=== PATIENT | female | born 1945 | race Caucasian/White ===

== ENCOUNTER 2018-05-26 18:14 | Emergency (ER) | payer MEDICARE ==
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
[2018-05-26 20:50] VITALS: BP 156/88; PULSE 82; O2SAT 99
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
== END 2018-05-26 20:50 | disposition home or self-care (01) ==
LOC: ED 18:14
DX: M50.320 Other cervical disc degeneration, mid-cervical region, unspecified level (principal); M54.2 Cervicalgia; M25.512 Pain in left shoulder; M25.572 Pain in left ankle and joints of left foot; V89.2XXA Person injured in unspecified motor-vehicle accident, traffic, initial encounter
CPT/HCPCS: 72040; 73030; 73610; 99283

== ENCOUNTER 2023-05-04 07:16 | Emergency (ER) | payer MEDICARE ==
[2023-05-04] MEDS ORDERED: XYLOCAINE 1%/Epi 1:100000 MDV 20 ML IJ ONE (07:33)
[2023-05-04] MEDS ORDERED: Adacel Vial IM ONE ×3 (07:33→08:01)
[2023-05-04] MEDS ORDERED: ROCEPHIN 2 Gm-D5w 50ML BAG** 2 G/50 ML IVPB IV STA (07:35)
[2023-05-04 07:43] VITALS: TEMP 97; O2SAT 98
[2023-05-04] MEDS ORDERED: XYLOCAINE 1% HCL 20 ML MDV ONE (07:46)
[2023-05-04] MEDS ORDERED: ROCEPHIN 2 Gm-D5w 50ML BAG** 2 G/50 ML IVPB IV ONE (07:46)
[2023-05-04 07:59] LABS: Absolute Neutrophil Ct (ANC) 7.42 x10^3/uL (1.4-6.9); BASOPHIL % 0.4 % (0.0-0.4); Basophil (Absolute #) 0.04 x10^3/uL (0-0.4); Eosinophil % 9.5 % (0.00-5.0); Hematocrit 35.8 % (35-47); Hemoglobin 11.7 g/dL (12.0-16.0); IMMATURE GRAN # 0.02 x10^3u/L (0.00-0.03); IMMATURE GRAN % 0.2 % (0.00-0.4); Lymphocyte (Absolute #) 1.49 x10^3/uL (1.0-4.6); Lymphocytes % 14.2 % (24.0-44.0); Mean Cell Volume 92.3 fL (78-100); Mean Corpuscular Hemoglobin 30.2 pg (26-32); Mean Corpuscular Hgb Concent. 32.7 g/dL (32-36); Mean Platelet Volume 9.1 fL (7.5-11.0); Monocyte (Absolute #) 0.51 x10^3/uL (0.0-1.3); Monocytes % 4.9 % (0.0-12.0); Neutrophil % 70.8 % (36.0-66.0); Platelet Count 266 x10^3/uL (150-450); Red Blood Count 3.88 x10^6/uL (4.1-5.4); Red Cell Distribution Width 12.9 % (11.5-14.0); White Blood Count 10.5 x10^3/uL (4.0-10.5)
[2023-05-04] MEDS ORDERED: XYLOCAINE 1%/Epi 1:100000 MDV 20 ML ONE (08:00)
[2023-05-04 08:33] LABS: ALBUMIN 3.6 g/dL (3.5-5.0); ALKALINE PHOSPHATASE 83 U/L (38-126); ANION GAP 14.4 MEQ/L (5-15); BLOOD UREA NITROGEN 9 mg/dL (7-17); CHLORIDE 109 mmol/L (98-107); Calcium 8.4 mg/dL (8.4-10.2); Carbon Dioxide 22 mmol/L (22-30); Creatinine 1 0.76 mg/dL (0.52-1.04); EST GLOMERULAR FILTRATION RATE > 60.0 ML/MIN; Glucose 98 mg/dL (74-106); Potassium 4.3 mmol/L (3.5-5.1); SGOT/AST 21 U/L (14-36); SGPT/ALT 15 U/L (0-35); SODIUM 141 mmol/L (137-145); Total Protein 5.6 g/dL (6.3-8.2)
--- NOTE | 2023-05-04 08:52 | XRAY ---
Indication: Spider bite. Foreign body. Comparison: None 3 view right hand demonstrates osteopenia, mild/moderate degenerative changes all IP/MCP joints, moderate/advanced degenerative changes 1st metacarpal multangular scaphoid articulation, 2nd/3rd DIP fusion with intact hardware, and diffuse soft tissue swelling/edema. No other bony, articular, or soft tissue abnormalities.
--- NOTE | 2023-05-04 09:35 | ERPHSYRPT ---
- History of Present Illness Time Seen by Provider: 05/04/23 07:27 Source: patient Exam Limitations: no limitations Patient Subjective Stated Complaint: pt here for pain to right index finger since tuesday, she believes she was bit by insect, now has drainage and pain Triage Nursing Assessment: pt alert, resp easy, walked in, skin w/d/p. has swell ing,,drainage,redness and tenderness to right index finger, Physician History: Patient has abscess of the right index finger. Has been going on for 3 days. Patient believes that she was bit by something. No falls or trauma. No foreign body sensation. She has not tried anything make it better or worse. It appears to be draining on its own. Some surrounding and inflammation. No history of serious infections. Allergies/Adverse Reactions: lorazepam [From Ativan] Allergy (Verified 05/04/23 07:31) increased pt anxiety level. nervousness, jittery Home Medications: Naproxen 500 mg [Naprosyn 500 MG] 500 mg PO DAILY 05/04/23 [History] Hx Tetanus, Diphtheria Vaccination/Date Given: No Hx Influenza Vaccination/Date Given: Yes Hx Pneumococcal Vaccination/Date Given: Yes Immunizations Up to Date: Yes Travel Risk - International Travel Have you traveled outside of the country in past 3 weeks: No - Coronavirus Screening Are you exhibiting any of the following symptoms?: No Close contact with a COVID-19 positive Pt in past 14-21 Days: No - Vaccine Status Have you recieved a Covid-19 vaccination: No - Review of Systems Constitutional: No Fever, No Chills Eyes: No Symptoms Ears, Nose, & Throat: No Symptoms Respiratory: No Cough, No Dyspnea Cardiac: No Chest Pain, No Edema, No Syncope Abdominal/Gastrointestinal: No Abdominal Pain, No Nausea, No Vomiting, No Diar lovely Genitourinary Symptoms: No Dysuria Musculoskeletal: No Back Pain, No Neck Pain Skin: Other (right index finger infection), No Rash Neurological: No Dizziness, No Focal Weakness, No Sensory Changes Psychological: No Symptoms Endocrine: No Symptoms All Other Systems: Reviewed and Negative - Past Medical History Pertinent Past Medical History: Yes Neurological History: No Pertinent History ENT History: Cataracts Cardiac History: Other Respiratory History: No Pertinent History Endocrine Medical History: Hypothyroidism Musculoskeletal History: Degenerative Disk Disease, Osteoarthritis GI Medical History: No Pertinent History History: No Pertinent History Psycho-Social History: No Pertinent History Female Reproductive Disorders: No Pertinent History Other Medical History: heart murmur - chronic back pain - Past Surgical History Past Surgical History: Yes Neuro Surgical History: No Pertinent History Cardiac: No Pertinent History Respiratory: No Pertinent History Gastrointestinal: Cholecystectomy Genitourinary: No Pertinent History Musculoskeletal: Orthopedic Surgery Female Surgical History: No Pertinent History Other Surgical History: cataract surgery-both eyes, r knee orthoscopic surgery torn ligament. - Social History Smoking Status: Never smoker Exposure to second hand smoke: No Drug Use: none Patient Lives Alone: No - Nursing Vital Signs Nursing Vital Signs: Initial Vital Signs Temperature 97.0 F 05/04/23 07:36 Pulse Rate 79 05/04/23 07:36 Respiratory Rate 20 05/04/23 07:36 Blood Pressure 178/86 05/04/23 07:36 O2 Sat by Pulse Oximetry 98 05/04/23 07:36 Pain Scale Pain Intensity 4 - Physical Exam General Appearance: no apparent distress, alert Eye Exam: PERRL/EOMI, eyes nml inspection Ears, Nose, Throat Exam: normal ENT inspection, TMs normal, pharynx normal, moist mucous membranes Neck Exam: normal inspection, non-tender, supple, full range of motion Respiratory Exam: normal breath sounds, lungs clear, No respiratory distress Cardiovascular Exam: regular rate/rhythm, normal heart sounds, normal peripheral pulses Gastrointestinal/Abdomen Exam: soft, normal bowel sounds, No tenderness, No mass Back Exam: normal inspection, normal range of motion, No CVA tenderness, No vertebral tenderness Extremity Exam: normal inspection, normal range of motion, pelvis stable Neurologic Exam: alert, oriented x 3, cooperative, normal mood/affect, nml cerebellar function, nml station & gait, sensation nml, No motor deficits Skin Exam: normal color, warm, dry, No rash Lymphatic Exam: No adenopathy SpO2: 98 Comments: 05/04/23 10:09 Physical Exam Vitals signsand nursing notereviewed. Constitutional: Appearance: She is well-developed. HENT: Head: Normocephalicand atraumatic. Eyes: Conjunctiva/sclera: Conjunctivae normal. Neck: Musculoskeletal: Normal range of motion. Trachea: No tracheal deviation. Cardiovascular: Rate and Rhythm: Normal rate. Pulmonary: Effort: Pulmonary effort is normal. Norespiratory distress. Abdominal: Palpations: Abdomen is soft. Musculoskeletal: General: right index finger infection. Dorsal abscess on the finger. 1 cm x 1 cm. No signs of flexor tenosynovitis. No obvious deformity, sensation intact, 2+ capillary refill, 2 point tactile discrimination intact. 5 out of 5 strength. Full range of motion without pain. Compartments are soft, nontender. Overlying skin shows redness tracking over dorsal hand. Skin: General: Skin is warmand dry. Neurological: Mental Status: She is alertand oriented to person, place, and time. Psychiatric: Behavior: Behaviornormal. 05/04/23 10:18 Procedures - Incision and Drainage Timeout: Performed Anesthesia: 1% lidocaine w/epi cc's of anesthesia: 3 (Digital block left index finger) Blade Size: 11 I & D Procedure: betadine prep Results: moderate amount pus Progress: Right index finger abscess drainage successful. - Course Nursing assessment & vital signs reviewed: Yes Ordered Tests: Active Orders 24 hr Category Date Time Status IV Insertion STAT Care 05/04/23 07:33 Completed HAND (MINIMUM 3 VIEWS) Stat Exams 05/04/23 07:34 Completed BLOOD CULTURE Stat Lab 05/04/23 07:46 Received CBC W DIFF Stat Lab 05/04/23 07:46 Completed CMP Stat Lab 05/04/23 07:46 Completed CULTURE,WOUND Stat Lab 05/04/23 08:59 Received Lactic Acid Stat Lab 05/04/23 07:33 Completed PROCALCITONIN Stat Lab 05/04/23 07:46 Completed Medication Summary Discontinued Medications Generic Name Dose Route Start Last Admin Trade Name Freq PRN Reason Stop Dose Admin Diphtheria/Tetanus/Acell Pertussis 0.5 ml 05/04/23 07:33 05/04/23 08:13 Tdap --Diph,Pertuss(Acell),Tet Vac/Pf 0.5 Ml Vial IM 05/04/23 07:34 0.5 ml .ONCE ONE Administration Diphtheria/Tetanus/Acell Pertussis Confirm 05/04/23 07:47 Tdap --Diph,Pertuss(Acell),Tet Vac/Pf 0.5 Ml Vial Administered 05/04/23 07:48 Dose 0.5 ml IM .STK-MED ONE Diphtheria/Tetanus/Acell Pertussis Confirm 05/04/23 08:01 Tdap --Diph,Pertuss(Acell),Tet Vac/Pf 0.5 Ml Vial Administered 05/04/23 08:02 Dose 0.5 ml IM .STK-MED ONE Ceftriaxone Sodium/Dextrose 2 g in 50 mls @ 100 mls/hr 05/04/23 07:35 05/04/23 09:41 Rocephin 2 Gm-D5w 50ml Bag IV 05/04/23 08:04 Infused STAT STA Infusion Ceftriaxone Sodium/Dextrose Confirm 05/04/23 07:46 Rocephin 2 Gm-D5w 50ml Bag Administered 05/04/23 07:47 Dose 2 g in 50 mls @ ud IV .STK-MED ONE Lidocaine HCl Confirm 05/04/23 07:46 Lidocaine Hcl 1% 20 Ml Mdv 20 Ml Ml Administered 05/04/23 07:47 Dose 5 ml .ROUTE .STK-MED ONE Lidocaine/Epinephrine 5 ml 05/04/23 07:33 05/04/23 08:14 Lidocaine Hcl/Epinephrine 1% 20 Ml IJ 05/04/23 07:34 5 ml STAT ONE Administration Lidocaine/Epinephrine Confirm 05/04/23 08:00 Lidocaine Hcl/Epinephrine 1% 20 Ml Administered 05/04/23 08:01 Dose 5 ml .ROUTE .STK-MED ONE Lab/Rad Data: Laboratory Result Diagrams 05/04/23 07:46 05/04/23 07:46 Laboratory Results 05/04/23 05/04/23 05/04/23 Range/Units 07:46 07:46 07:46 WBC 10.5 (4.0-10.5) x10^3/uL RBC 3.88 L (4.1-5.4) x10^6/uL Hgb 11.7 L (12.0-16.0) g/dL Hct 35.8 (35-47) % MCV 92.3 (78-100) fL MCH 30.2 (26-32) pg MCHC 32.7 (32-36) g/dL RDW 12.9 (11.5-14.0) % Plt Count 266 (150-450) x10^3/uL MPV 9.1 (7.5-11.0) fL Gran % 70.8 H (36.0-66.0) % Immature Gran % (Auto) 0.2 (0.00-0.4) % Nucleat RBC Rel Count 0.0 (0.00-0.1) % Eos # (Auto) 1.00 H (0-0.5) x10^3/uL Immature Gran # (Auto) 0.02 (0.00-0.03) x10^3u/L Absolute Lymphs (auto) 1.49 (1.0-4.6) x10^3/uL Absolute Monos (auto) 0.51 (0.0-1.3) x10^3/uL Absolute Nucleated RBC 0.00 (0.00-0.01) x10^3u/L Lymphocytes % 14.2 L (24.0-44.0) % Monocytes % 4.9 (0.0-12.0) % Eosinophils % 9.5 H (0.00-5.0) % Basophils % 0.4 (0.0-0.4) % Absolute Granulocytes 7.42 H (1.4-6.9) x10^3/uL Basophils # 0.04 (0-0.4) x10^3/uL Sodium 141 (137-145) mmol/L Potassium 4.3 (3.5-5.1) mmol/L Chloride 109 H (98-107) mmol/L Carbon Dioxide 22 (22-30) mmol/L Anion Gap 14.4 (5-15) MEQ/L BUN 9 (7-17) mg/dL Creatinine 0.76 (0.52-1.04) mg/dL Estimated GFR > 60.0 ML/MIN Glucose 98 (74-106) mg/dL Lactic Acid (0.4-2.0) Calcium 8.4 (8.4-10.2) mg/dL Total Bilirubin 0.60 (0.2-1.3) mg/dL AST 21 (14-36) U/L ALT 15 (0-35) U/L Alkaline Phosphatase 83 (38-126) U/L Serum Total Protein 5.6 L (6.3-8.2) g/dL Albumin 3.6 (3.5-5.0) g/dL Procalcitonin 0.070 (0.030-0.080) ng/mL 05/04/23 Range/Units 07:33 WBC (4.0-10.5) x10^3/uL RBC (4.1-5.4) x10^6/uL Hgb (12.0-16.0) g/dL Hct (35-47) % MCV (78-100) fL MCH (26-32) pg MCHC (32-36) g/dL RDW (11.5-14.0) % Plt Count (150-450) x10^3/uL MPV (7.5-11.0) fL Gran % (36.0-66.0) % Immature Gran % (Auto) (0.00-0.4) % Nucleat RBC Rel Count (0.00-0.1) % Eos # (Auto) (0-0.5) x10^3/uL Immature Gran # (Auto) (0.00-0.03) x10^3u/L Absolute Lymphs (auto) (1.0-4.6) x10^3/uL Absolute Monos (auto) (0.0-1.3) x10^3/uL Absolute Nucleated RBC (0.00-0.01) x10^3u/L Lymphocytes % (24.0-44.0) % Monocytes % (0.0-12.0) % Eosinophils % (0.00-5.0) % Basophils % (0.0-0.4) % Absolute Granulocytes (1.4-6.9) x10^3/uL Basophils # (0-0.4) x10^3/uL Sodium (137-145) mmol/L Potassium (3.5-5.1) mmol/L Chloride (98-107) mmol/L Carbon Dioxide (22-30) mmol/L Anion Gap (5-15) MEQ/L BUN (7-17) mg/dL Creatinine (0.52-1.04) mg/dL Estimated GFR ML/MIN Glucose (74-106) mg/dL Lactic Acid 1.0 (0.4-2.0) Calcium (8.4-10.2) mg/dL Total Bilirubin (0.2-1.3) mg/dL AST (14-36) U/L ALT (0-35) U/L Alkaline Phosphatase (38-126) U/L Serum Total Protein (6.3-8.2) g/dL Albumin (3.5-5.0) g/dL Procalcitonin (0.030-0.080) ng/mL - Progress Progress: improved Progress Note: 05/04/23 10:13 Left finger abscess infection. It was drained as procedure note above. We did discuss admitting patient for IV antibiotics. 1 dose of IV ceftriaxone given in the emergency department. Patient has no leukocytosis, normal procalcitonin, normal lactic acid. We did get a good amount of drainage out of the finger. Given this, patient would like to go home and follow-up. We did call patient's PCP and got her a follow-up appointment in 48 hours. She should return here sooner for new or changing symptoms. Patient will be discharged home on doxycycline. She should start taking this immediately. All questions answered. Return here sooner for new or changing symptoms. Counseled pt/family regarding: lab results, diagnosis, need for follow-up - Departure Departure Disposition: Home Clinical Impression: Abscess of left index finger Condition: Stable Critical Care Time: No Referrals: LEANA GARCIA NP [Primary Care Provider] - Follow up/PCP as directed Instructions: Hand Pain (DC) Prescriptions: Doxycycline Hyclate 100 mg [Vibramycin 100 MG] 100 mg PO BID 10 Days #20 tab
[2023-05-04 10:28] VITALS: BP 120/80; PULSE 78; RESP 18
== END 2023-05-04 10:14 | disposition home or self-care (01) ==
LOC: ED 07:16
DX: L02.511 Cutaneous abscess of right hand (principal); Z28.310 Unvaccinated for COVID-19
CPT/HCPCS: 26010; 36000; 36415; 73130; 80053; 83605; 84145; 85025; 87040; 87070; 87077; 87186; 90471; 90715; 96365; 96374; 99284; J0696

== ENCOUNTER 2023-07-17 13:13 | Emergency (ER) | payer MEDICARE ==
[2023-07-17 13:39] VITALS: TEMP 98.1
[2023-07-17] MEDS ORDERED: Sodium Chloride 0.9% 500 ML 500 ML IV ONE ×2 (13:49→13:55)
[2023-07-17] MEDS ORDERED: HYDROCODONE-ACETAMIN 2.5-108/5 ML SOLUTION PO STA (13:49)
[2023-07-17] MEDS ORDERED: HYDROCODONE-ACETAMIN 2.5-108/5 ML SOLUTION ONE (13:55)
[2023-07-17 14:05] VITALS: O2SAT 94
[2023-07-17 14:09] LABS: Absolute Neutrophil Ct (ANC) 12.58 x10^3/uL (1.4-6.9); BASOPHIL % 0.1 % (0.0-0.4); Basophil (Absolute #) 0.01 x10^3/uL (0-0.4); Eosinophil (Absolute #) 0 x10^3/uL (0-0.5); Hemoglobin 12.7 g/dL (12.0-16.0); IMMATURE GRAN # 0.06 x10^3u/L (0.00-0.03); IMMATURE GRAN % 0.5 % (0.00-0.4); Lymphocytes % 1.5 % (24.0-44.0); Mean Cell Volume 93.2 fL (78-100); Mean Corpuscular Hemoglobin 29.6 pg (26-32); Mean Corpuscular Hgb Concent. 31.8 g/dL (32-36); Mean Platelet Volume 9.5 fL (7.5-11.0); Monocyte (Absolute #) 0.12 x10^3/uL (0.0-1.3); Monocytes % 0.9 % (0.0-12.0); Platelet Count 260 x10^3/uL (150-450); Red Blood Count 4.29 x10^6/uL (4.1-5.4); Red Cell Distribution Width 13.1 % (11.5-14.0)
[2023-07-17 14:19] LABS: Group A Strep NOT DETECTED (NEGATIVE)
[2023-07-17 14:23] LABS: ALBUMIN 3.7 g/dL (3.5-5.0); BILIRUBIN,TOTAL 0.5 mg/dL (0.2-1.3); Calcium 8.8 mg/dL (8.4-10.2); Creatinine 1 0.76 mg/dL (0.52-1.04); EST GLOMERULAR FILTRATION RATE 80.7 ML/MIN; Potassium 3.8 mmol/L (3.5-5.1); Total Protein 6.9 g/dL (6.3-8.2)
[2023-07-17 14:30] LABS: INFLUENZA A NEGATIVE (NEGATIVE); INFLUENZA B NEGATIVE (NEGATIVE); RESPIRATORY SYNCTIAL VIRUS NEGATIVE (NEGATIVE)
[2023-07-17 14:35] LABS: SARS-CoV-2 Xpert Express POSITIVE (NEGATIVE)
[2023-07-17 14:39] LABS: Slide Review 1 YES
--- NOTE | 2023-07-17 15:15 | ERPHSYRPT ---
- History of Present Illness Time Seen by Provider: 07/17/23 13:22 Source: patient Exam Limitations: no limitations Patient Subjective Stated Complaint: Patient c/o cough for several days. States "everything started with a sore throat about a week ago." Pain described as body aches. Triage Nursing Assessment: Patient ambulated back to ER wearing a mask. She is SOB with exertion but recovers quickly once at rest. She is alert and oriented. She has a dry, non-productive cough. Lungs clear. Skin is warm to touch; currently afebrile. Physician History: 78-year-old female presented to the ER with chief complaint of cough congestion, body aches, sore throat with generalized weakness fatigue and tiredness for almost 1 week with progressive improvement until yesterday when Patient reports fever with chills off and on with a Tmax of 102 yesterday. Reports coughing up clear to yellow sputum and because of repeated coughing having generalized chest soreness. Allergies/Adverse Reactions: lorazepam [From Ativan] Allergy (Verified 07/17/23 13:22) increased pt anxiety level. nervousness, jittery Home Medications: Alendronate Sodium 70 mg [Fosamax 70 MG] 1 tab PO WEEKLY 07/17/23 [History] Amlodipine Besylate [Norvasc] 1 tab PO DAILY 07/17/23 [History] Levothyroxine Sodium 50 Mcg [Synthroid 50 Mcg] 1 tab PO DAILY 07/17/23 [History] Hx Tetanus, Diphtheria Vaccination/Date Given: Yes Hx Influenza Vaccination/Date Given: Yes Hx Pneumococcal Vaccination/Date Given: Yes Immunizations Up to Date: Yes Travel Risk - International Travel Have you traveled outside of the country in past 3 weeks: No - Coronavirus Screening Are you exhibiting any of the following symptoms?: Yes Symptoms: Fever, Cough: New Onset, Headaches/Body Aches/Fatigue Close contact with a COVID-19 positive Pt in past 14-21 Days: No - Vaccine Status Have you recieved a Covid-19 vaccination: No - Review of Systems Constitutional: Fever, Chills, Fatigue, Weakness Eyes: No Symptoms Ears, Nose, & Throat: Throat Pain, Throat Swelling Respiratory: Cough, Dyspnea Cardiac: No Symptoms Abdominal/Gastrointestinal: No Symptoms Genitourinary Symptoms: No Symptoms Musculoskeletal: Myalgias Skin: No Symptoms Neurological: Headache Psychological: No Symptoms Endocrine: No Symptoms Hematologic/Lymphatic: No Symptoms Immunological/Allergic: No Symptoms - Past Medical History Pertinent Past Medical History: Yes Neurological History: No Pertinent History ENT History: Cataracts Cardiac History: Hypertension, Other Respiratory History: No Pertinent History Endocrine Medical History: Hypothyroidism Musculoskeletal History: Degenerative Disk Disease, Osteoarthritis, Osteoporosis GI Medical History: Gallbladder Disease History: No Pertinent History Psycho-Social History: No Pertinent History Female Reproductive Disorders: No Pertinent History Other Medical History: heart murmur - chronic back pain, siatic nerve issues - Past Surgical History Past Surgical History: Yes Neuro Surgical History: No Pertinent History Cardiac: No Pertinent History Respiratory: No Pertinent History Gastrointestinal: Cholecystectomy Genitourinary: No Pertinent History Musculoskeletal: Orthopedic Surgery Female Surgical History: No Pertinent History Other Surgical History: cataract surgery-both eyes, r knee orthoscopic surgery torn ligament. - Social History Smoking Status: Never smoker Exposure to second hand smoke: No Drug Use: none Patient Lives Alone: No - Nursing Vital Signs Nursing Vital Signs: Initial Vital Signs Temperature 98.1 F 07/17/23 13:13 Pulse Rate 77 07/17/23 13:13 Respiratory Rate 24 07/17/23 13:13 Blood Pressure 147/83 07/17/23 13:13 O2 Sat by Pulse Oximetry 98 07/17/23 13:13 Pain Scale Pain Intensity 4 - Physical Exam General Appearance: no apparent distress, alert Eye Exam: PERRL/EOMI Ears, Nose, Throat Exam: pharyngeal erythema Neck Exam: normal inspection, non-tender, supple, full range of motion Respiratory Exam: normal breath sounds, rhonchi Cardiovascular Exam: regular rate/rhythm, normal heart sounds Gastrointestinal/Abdomen Exam: soft Extremity Exam: normal inspection, normal range of motion Neurologic Exam: alert, oriented x 3, cooperative Skin Exam: normal color SpO2 Interpretation: normal SpO2: 94 O2 Delivery: Room Air Ordered Tests: Active Orders 24 hr Category Date Time Status IV Insertion STAT Care 07/17/23 13:48 Active CHEST 1 VIEW (PORTABLE) Stat Exams 07/17/23 13:25 Taken BLOOD CULTURE Stat Lab 07/17/23 14:05 Received CBC W DIFF Stat Lab 07/17/23 13:55 Completed CMP Stat Lab 07/17/23 13:55 Completed Lactic Acid Stat Lab 07/17/23 13:48 Completed Lactic Acid Stat Lab 07/17/23 16:02 Completed PROCALCITONIN Stat Lab 07/17/23 13:55 Completed UA W/RFX UR CULTURE Stat Lab 07/17/23 13:49 Ordered Medication Summary Discontinued Medications Generic Name Dose Route Start Last Admin Trade Name [place] PRN Reason Stop Dose Admin Hydrocodone Bitart/Acetaminophen 10 ml 07/17/23 13:49 07/17/23 13:56 Hydrocodone/Acetaminophen 5 Ml Udcup PO 07/17/23 13:50 10 ml STAT STA Administration Hydrocodone Bitart/Acetaminophen Confirm 07/17/23 13:55 Hydrocodone/Acetaminophen 5 Ml Udcup Administered 07/17/23 13:56 Dose 10 ml .ROUTE .STK-MED ONE Dexamethasone Sodium Phosphate 6 mg 07/17/23 16:17 07/17/23 16:23 Dexamethasone Sod Phosphate 10 Mg/Ml IV 07/17/23 16:18 6 mg STAT ONE Administration Dexamethasone Sodium Phosphate Confirm 07/17/23 16:23 Dexamethasone Sod Phosphate 10 Mg/Ml Administered 07/17/23 16:24 Dose 10 mg .ROUTE .STK-MED ONE Doxycycline Hyclate 100 mg 07/17/23 16:17 07/17/23 16:24 Doxycycline Hyclate 100 Mg Tablet PO 07/17/23 16:18 100 mg STAT ONE Administration Doxycycline Hyclate Confirm 07/17/23 16:23 Doxycycline Hyclate 100 Mg Tablet Administered 07/17/23 16:24 Dose 100 mg .ROUTE .STK-MED ONE Sodium Chloride 500 mls @ 500 mls/hr 07/17/23 13:49 07/17/23 14:56 Sodium Chloride 0.9% 500 Ml IV 07/17/23 14:48 Infused .Q1H ONE Infusion Sodium Chloride Confirm 07/17/23 13:55 Sodium Chloride 0.9% 500 Ml Administered 07/17/23 13:56 Dose 500 mls @ ud IV .STK-MED ONE Lab/Rad Data: Laboratory Result Diagrams 07/17/23 13:55 07/17/23 13:55 Laboratory Results 07/17/23 07/17/23 07/17/23 Range/Units 16:02 13:55 13:55 WBC (4.0-10.5) x10^3/uL RBC (4.1-5.4) x10^6/uL Hgb (12.0-16.0) g/dL Hct (35-47) % MCV (78-100) fL MCH (26-32) pg MCHC (32-36) g/dL RDW (11.5-14.0) % Plt Count (150-450) x10^3/uL MPV (7.5-11.0) fL Gran % (36.0-66.0) % Immature Gran % (Auto) (0.00-0.4) % Nucleat RBC Rel Count (0.00-0.1) % Eos # (Auto) (0-0.5) x10^3/uL Immature Gran # (Auto) (0.00-0.03) x10^3u/L Absolute Lymphs (auto) (1.0-4.6) x10^3/uL Absolute Monos (auto) (0.0-1.3) x10^3/uL Absolute Nucleated RBC (0.00-0.01) x10^3u/L Lymphocytes % (24.0-44.0) % Monocytes % (0.0-12.0) % Eosinophils % (0.00-5.0) % Basophils % (0.0-0.4) % Absolute Granulocytes (1.4-6.9) x10^3/uL Basophils # (0-0.4) x10^3/uL Sodium 135 L (137-145) mmol/L Potassium 3.8 (3.5-5.1) mmol/L Chloride 101 (98-107) mmol/L Carbon Dioxide 24 (22-30) mmol/L Anion Gap 14.0 (5-15) MEQ/L BUN 16 (7-17) mg/dL Creatinine 0.76 (0.52-1.04) mg/dL Estimated GFR 80.7 ML/MIN Glucose 158 H (74-106) mg/dL Lactic Acid 1.7 (0.4-2.0) Calcium 8.8 (8.4-10.2) mg/dL Total Bilirubin 0.50 (0.2-1.3) mg/dL AST 30 (14-36) U/L ALT 21 (0-35) U/L Alkaline Phosphatase 81 (38-126) U/L Serum Total Protein 6.9 (6.3-8.2) g/dL Albumin 3.7 (3.5-5.0) g/dL Procalcitonin 0.457 H (0.030-0.080) ng/mL Influenza Type A Ag (NEGATIVE) Influenza Type B Ag (NEGATIVE) RSV (PCR) (NEGATIVE) SARS-CoV-2 (PCR) (NEGATIVE) Group A Strep Antibody (NEGATIVE) Slides for Path Review 07/17/23 07/17/23 07/17/23 Range/Units 13:55 13:50 13:48 WBC 13.0 H (4.0-10.5) x10^3/uL RBC 4.29 (4.1-5.4) x10^6/uL Hgb 12.7 (12.0-16.0) g/dL Hct 40.0 (35-47) % MCV 93.2 (78-100) fL MCH 29.6 (26-32) pg MCHC 31.8 L (32-36) g/dL RDW 13.1 (11.5-14.0) % Plt Count 260 (150-450) x10^3/uL MPV 9.5 (7.5-11.0) fL Gran % 97.0 H (36.0-66.0) % Immature Gran % (Auto) 0.5 H (0.00-0.4) % Nucleat RBC Rel Count 0.0 (0.00-0.1) % Eos # (Auto) 0 (0-0.5) x10^3/uL Immature Gran # (Auto) 0.06 H (0.00-0.03) x10^3u/L Absolute Lymphs (auto) 0.20 L (1.0-4.6) x10^3/uL Absolute Monos (auto) 0.12 (0.0-1.3) x10^3/uL Absolute Nucleated RBC 0.00 (0.00-0.01) x10^3u/L Lymphocytes % 1.5 L (24.0-44.0) % Monocytes % 0.9 (0.0-12.0) % Eosinophils % 0.0 (0.00-5.0) % Basophils % 0.1 (0.0-0.4) % Absolute Granulocytes 12.58 H (1.4-6.9) x10^3/uL Basophils # 0.01 (0-0.4) x10^3/uL Sodium (137-145) mmol/L Potassium (3.5-5.1) mmol/L Chloride (98-107) mmol/L Carbon Dioxide (22-30) mmol/L Anion Gap (5-15) MEQ/L BUN (7-17) mg/dL Creatinine (0.52-1.04) mg/dL Estimated GFR ML/MIN Glucose (74-106) mg/dL Lactic Acid 2.8 H (0.4-2.0) Calcium (8.4-10.2) mg/dL Total Bilirubin (0.2-1.3) mg/dL AST (14-36) U/L ALT (0-35) U/L Alkaline Phosphatase (38-126) U/L Serum Total Protein (6.3-8.2) g/dL Albumin (3.5-5.0) g/dL Procalcitonin (0.030-0.080) ng/mL Influenza Type A Ag NEGATIVE (NEGATIVE) Influenza Type B Ag NEGATIVE (NEGATIVE) RSV (PCR) NEGATIVE (NEGATIVE) SARS-CoV-2 (PCR) POSITIVE A (NEGATIVE) Group A Strep Antibody NOT DETECTED (NEGATIVE) Slides for Path Review YES - Progress Progress: improved, re-examined Air Movement: good Progress Note: 07/17/23 16:37 78-year-old female presented to the ER with chief complaint of cough congestion, body aches, sore throat with generalized weakness fatigue and tiredness for almost 1 week with progressive improvement until yesterday when patient reports fever with chills off and on with a Tmax of 102 yesterday. Reports coughing up clear to yellow sputum and because of repeated coughing having generalized chest soreness. She is not in any distress. Patient oxygen saturation resting is around 90/95% and with ambulation it dropped to 91% the lowest. White count is 13, lactate of 2.8 with procalcitonin 1.45 and chest x-ray showed bilateral airspace disease consistent with COVID. She is given Decadron and recommended observation admission but patient does not want to stay in the hospital at all. I have discussed with her in detail about Paxlovid went over risk and benefits and drug interactions and she is okay with taking that. I will send a prescription of Paxlovid to the pharmacy. We will continue with low-dose steroids. Discussed signs symptoms of worsening needing return to ER which she seems understanding. Stable for discharge. Blood Culture(s) Obtained: Yes Antibiotics given: Yes Counseled pt/family regarding: lab results, diagnosis, need for follow-up, rad results Medical Desision Making - Diagnostic Testing Diagnostic test were ordered, analyzed, and reviewed by me: Yes Radiological Interpretation: Interpreted by me, Reviewed by me - Risk of complications The pt has a mod risk of morbidity or mortality based on: Need for prescription drug management - Departure Departure Disposition: Home Clinical Impression: COVID-19 virus detected, Bronchitis Condition: Stable Critical Care Time: No Referrals: LEANA GARCIA NP [Primary Care Provider] - Follow up with PCP 1 day Instructions: Cough, Adult (DC) Additional Instructions: Follow-up with primary care for reevaluation in 1 to 2 days. Take Tylenol as needed for aches and pains. Drink plenty of fluids to keep yourself well- hydrated. Return to ER for worsening cough or difficulty breathing, chest pain, intractable nausea vomiting etc. Prescriptions: Dexamethasone 4 mg [Decadron 4 MG] 4 mg PO DAILY 5 Days #5 tablet Nirmatrelvir/Ritonavir [Paxlovid 300-100 mg Pack (Eua)] 1 each PO BID 5 Days #20 tab Doxycycline Hyclate 100 mg [Vibramycin 100 MG] 100 mg PO BID #14 tab
[2023-07-17 16:04] VITALS: PULSE 69; RESP 13
[2023-07-17] MEDS ORDERED: DECADRON 10MG INJ. IV ONE (16:17)
[2023-07-17] MEDS ORDERED: Vibramycin 100 MG PO ONE (16:17)
[2023-07-17] MEDS ORDERED: Vibramycin 100 MG ONE (16:23)
[2023-07-17] MEDS ORDERED: DECADRON 10MG INJ. ONE (16:23)
[2023-07-17 17:18] VITALS: BP 114/64
--- NOTE | 2023-07-17 18:42 | XRAY ---
Indication: Fever, cough, and short of breath. Comparison: December 04, 2015 Portable apical lordotic chest less inflated with new bilateral mid to lower lung infiltrates versus atelectasis. No consolidation/large effusion. Heart not enlarged. Bony thorax intact with osteopenia, degenerative changes, and mild levorotoscoliosis.
== END 2023-07-17 17:19 | disposition home or self-care (01) ==
LOC: ED 13:13
DX: U07.1 COVID-19 (principal); J40 Bronchitis, not specified as acute or chronic; R05.1 Acute cough; M79.10 Myalgia, unspecified site; J02.9 Acute pharyngitis, unspecified; R53.1 Weakness; R50.9 Fever, unspecified; I10 Essential (primary) hypertension; Z79.52 Long term (current) use of systemic steroids; Z79.899 Other long term (current) drug therapy; Z28.310 Unvaccinated for COVID-19
CPT/HCPCS: 0241U; 36000; 36415; 71045; 80053; 83605; 84145; 85025; 87040; 87651; 96374; 99284; J1100; A9270-GY